=== PATIENT | female | born 1990 | race Native Hawaiian/Other Pacific Islander ===

== ENCOUNTER 2016-12-26 20:54 | Emergency (ER) | payer BC, OTHER ==
[~2016-12-26] VITALS: Ht 154.9 cm; Wt 63.5 kg
[2016-12-26] MEDS ORDERED: IBUPROFEN 600 MG TABLET PO STA (23:31)
[2016-12-26] MEDS ORDERED: IBUPROFEN 600 MG TABLET PO ONE (23:39)
[2016-12-26 23:43] VITALS: BP 133/84
== END 2016-12-26 23:47 | disposition home or self-care (01) ==
LOC: ER 21:01
DX: S76.902A Unspecified injury of unspecified muscles, fascia and tendons at thigh level, left thigh, initial encounter (principal); S76.901A Unspecified injury of unspecified muscles, fascia and tendons at thigh level, right thigh, initial encounter; R25.2 Cramp and spasm; X58.XXXA Exposure to other specified factors, initial encounter; Y93.B9 Activity, other involving muscle strengthening exercises; Y92.89 Other specified places as the place of occurrence of the external cause; Y99.8 Other external cause status
CPT/HCPCS: A4606; Z7610